=== PATIENT | female | born 1970 | race American Indian/Alaskan Native ===

== ENCOUNTER 2022-02-12 01:58 | Emergency (ER) | payer BC ==
--- NOTE | 2022-02-12 03:27 | XRay Report ---
Right forearm 2 views INDICATION: Injury FINDINGS: No acute fractures seen. No focal soft tissue swelling within the forearm. There may be torsten e mild soft tissue swelling within the wrist. Visualized carpal bones appear normal Signer Name: Carlos Montes MD Signed: 02/12/2022 3:23 AM Workstation Name: [id number]
== END 2022-02-12 06:00 | disposition left against medical advice (07) ==
LOC: ED 01:58 → EDBD 01:58 → ED 06:00
DX: S49.91XA Unspecified injury of right shoulder and upper arm, initial encounter (principal); Z53.21 Procedure and treatment not carried out due to patient leaving prior to being seen by health care provider; X58.XXXA Exposure to other specified factors, initial encounter; Y93.89 Activity, other specified; Y92.89 Other specified places as the place of occurrence of the external cause; Y99.8 Other external cause status